=== PATIENT | male | born 1960 | race Caucasian/White ===

== ENCOUNTER 2020-09-01 12:21 | Emergency (ER) | payer OTHER ==
[~2020-09-01] VITALS: Ht 180.3 cm; Wt 99.5 kg
[2020-09-01 13:30] VITALS: Ht 180.3 cm; Wt 99.5 kg
[2020-09-01 17:08] VITALS: BP 123/78
== END 2020-09-01 17:08 | disposition home or self-care (01) ==
LOC: ED 12:21
DX: S01.01XA Laceration without foreign body of scalp, initial encounter (principal); W18.39XA Other fall on same level, initial encounter; Y93.89 Activity, other specified; Y92.89 Other specified places as the place of occurrence of the external cause; Y99.8 Other external cause status
CPT/HCPCS: 90715

== ENCOUNTER 2020-09-06 15:18 | Emergency (ER) | payer OTHER ==
[~2020-09-06] VITALS: Ht 180.3 cm; Wt 100.2 kg
[2020-09-06 15:55] VITALS: Ht 180.3 cm; Wt 100.2 kg
[2020-09-06 16:05] VITALS: BP 151/93
== END 2020-09-06 16:05 | disposition home or self-care (01) ==
LOC: ED 15:18
DX: S01.81XD Laceration without foreign body of other part of head, subsequent encounter (principal); W22.8XXD Striking against or struck by other objects, subsequent encounter